=== PATIENT | female | born 1955 | race Caucasian/White ===

== ENCOUNTER 2018-02-25 20:07 | Observation (INO) ==
--- NOTE | 2018-02-25 20:56 | Emergency Department Note ---
Disposition Clinical Impression: Dizziness Disposition: Admitted As Inpatient Condition: Fair Referrals: Jenni Santiago DO [Primary Care Provider] - Forms: ED Satisfaction Letter Time of Disposition: 00:15 General Adult HPI - General Chief complaint: ED Dizziness Stated complaint: dizziness n/v Time Seen by Provider: 02/25/18 20:15 Source: patient, EMS Mode of arrival: EMS Limitations: no limitations Nursing Notes Reviewed: Yes Vital Signs Reviewed: Yes - History of Present Illness HPI Narrative: 62 year old white female presents for dizziness and nausea/vomiting. It started suddenly 2 hours ago while sitting outside. She feels like her eyes can't focus and when she tries to walk, she can't walk in a straight line. Dizziness is worse with movement of the head and better with staying completely still. Patient states this has never happened before. Patient states EMS gave her something for nausea and that her nausea is now gone. Only other associated weakness patient reports is feeling weak. Denies ringing in the ears, hearing changes, visual changes, congestion, recent illness, fever, chills, weight loss , trauma, fall, diarrhea, chest pain, shortness of breath, numbness, tingling, abdominal pain, urinary changes, bowel changes. Patient reports history of HTN, denies diabetes and cancer. Pain Scale: 0 - Related Data Home Medications Medication Instructions Recorded Confirmed Hydrochlorothiazide [Microzide] 12.5 mg PO DAILY 02/25/18 02/25/18 Previous Rx's Medication Instructions Recorded Lisinopril [Zestril] 10 mg PO DAILY #20 tablet 09/19/17 Allergies Allergy/AdvReac Type Severity Reaction Status Date / Time No Known Allergies Allergy Verified 01/15/17 09:54 All systems ED: reviewed and negative except as stated. Past Medical History - Past Medical History Medical history: Reports: hypertension Surgical history: Reports: colectomy Psychiatric history: Reports: no psych history STATISTICIAN THEORETICAL history: Reports: bilateral tubal ligation - Social History Smoking Status: Former smoker Smokeless Tobacco Status: No Alcohol use: Reports: none Drug use: Reports: none Physical Exam - General Limitations: no limitations General appearance: alert - Head Head exam: atraumatic, normocephalic, normal inspection - Eye Eye exam: Present: normal appearance, PERRL, EOMI. Absent: nystagmus - ENT ENT exam: normal exam, normal oropharynx, mucous membranes moist - Respiratory Respiratory exam: Present: normal lung sounds bilaterally - Cardiovascular Cardiovascular exam: Present: regular rate, normal rhythm, normal heart sounds - Abdominal Exam Abdominal exam: Present: soft, Non-Tender. Absent: tenderness, distention, guarding, rebound, rigidity - Extremities Exam Extremities exam: Present: normal inspection, full ROM. Absent: tenderness, pedal edema - Neurological Exam Neurological exam: Present: alert, oriented X3, CN II-XII intact, other ( Negative HINTS exam). Absent: motor sensory deficit - Psychiatric Psychiatric exam: Present: normal affect, normal mood - Skin Skin exam: Present: warm, dry, intact, normal color Course Course Narrative: 62 year old female presents for sudden onset dizziness with nausea and vomiting that is worse with movement of the head and better with staying still. Patient is alert and oriented, hemodynamically stable, and of non-toxic appearance. On exam, dizziness is worsened with head rotation. HINTS exam is negative and there are no focal deficits. Will give patient meclizine. Will also order head CT, EKG, CBC, and BMP. - Reevaluation(s) Reevaluation #1: Head CT shows no acute abnormalities. Labwork is unremarkable. Patient could not tolerate meclizine by mouth and started vomiting again. Another dose of IV zofran was given. Will try oral meclizine again. Time: 21:50 Reevaluation #2: Patient was able to keep down second try of meclizine. Checking on patient at 11 :13pm, she reports dizziness seems to be a little better. Patient was walked. She was able to walk slowly without assistance in a straight line and turn without falling or vomiting, but the patient still reports dizziness and feeling unsteady. UA reveals large leukocyte esterase, high WBCs, and many squamous epithelial cells. Will order rocephin for UTI. Will admit to hospitalist for continuing dizziness. Spoke with hospitalist Dr. Valdivia and he agreed to admit patient. Spoke with patient about negative imaging and lab results and about admission to hospital. Patient voiced understanding and is agreeable to admission. Time: 00:01 Vital Signs Temperature 97 F L 02/25/18 20:17 Pulse Rate 79 02/25/18 20:17 Respiratory Rate 18 02/25/18 20:17 Blood Pressure 139/84 02/25/18 20:17 O2 Sat by Pulse Oximetry 94 02/25/18 20:17 Temperature 97 F L 02/25/18 20:17 Pulse Rate 93 02/25/18 21:37 Respiratory Rate 16 02/25/18 21:37 Blood Pressure 136/68 02/25/18 21:37 O2 Sat by Pulse Oximetry 95 02/25/18 21:37 Oxygen Delivery Oxygen Delivery Room Air Medical Decision Making - Medical Records Medical records reviewed: Yes I reviewed the patient's medical records. - Lab Data Lab results reviewed: Yes I reviewed the patient's lab results. - Radiology Data Radiology results reviewed: Yes I reviewed the patient's radiology results. Head CT 02/25/2018. No acute abnormalities. - EKG Data EKG #1 EKG attestation: Yes I reviewed and interpreted this EKG. EKG results narrative: EKG 02/25/2018 21:07. Sinus rhythm. Heart rate 80. No ST segment depression or elevation. No comparison EKG.
[2018-02-25] MEDS ORDERED: Ondansetron 4 MG/2 ML VIAL IVP ONE (21:27)
[2018-02-25 21:44] LABS: Basophils % 0.3 %; Eosinophils % 0.2 %; Hematocrit 41.5 % (35.3-44.9); Hemoglobin 14.1 g/dL (11.5-15.4); Immature Granulocytes % 0.5 % (0-4); Lymphocytes # 1.4 K/mcL (0.6-4.6); Lymphocytes % 10.1 %; Mean Corpuscular Hemoglobin 30.5 pg (28.0-33.3); Mean Corpuscular Volume 89.8 fL (83.0-100.0); Mean Platelet Volume 8.8 fL (9.4-12.4); Monocytes % 7.4 %; Neutrophils # 11.2 K/mcL (1.6-8.9); Platelet Count 255 K/mcL (140-400); Red Blood Count 4.62 M/mcL (3.82-4.97); Red Cell Distribution Width 13.6 % (11.5-14.5); Segmented Neutrophils % 81.5 %
[2018-02-25 22:03] LABS: BUN/Creatinine Ratio 21 (6-26); Blood Urea Nitrogen 16 mg/dL (8-23); Calcium 9.2 mg/dL (8.6-10.3); Carbon Dioxide 27 mEq/L (23-29); Chloride 109 mEq/L (98-107); Glucose 136 mg/dL (70-105); Osmolality,Calculated 283 (280-300); Potassium 4.1 mEq/L (3.5-5.1); Sodium 135 mEq/L (136-145); eGFR For Non-African Americans > 60 (> 60)
[2018-02-25 23:03] LABS: Bilirubin,Urine Negative (Negative); Blood,Urine Negative (Negative); Clarity,Urine Clear (Clear); Color,Urine Yellow (Yellow); Glucose,Urine (UA) Normal (Normal); Ketones,Urine Negative (Negative); Leukocyte Esterase,Urine Large (Negative); Nitrite,Urine Negative (Negative); Protein,Urine Negative (Neg-Trace); Specific Gravity,Urine 1.024 (1.010-1.025); Urobilinogen,Urine Normal (Normal)
[2018-02-25 23:06] LABS: Bacteria,Urine None Seen per hpf (None-Few); Hyaline Casts,Urine None Seen per lpf (None-Few); Squamous Epithelial Cell,Urine Many per lpf (None-Few); WBC,Urine 15-30 per hpf (0-3)
[2018-02-25] MEDS ORDERED: cefTRIAXone 1,000 MG in Water for inj. (sterile) 20 ML 10 ML IVPB ONE (23:51)
--- NOTE | 2018-02-25 23:56 | Emergency Department Note ---
Disposition Clinical Impression: Dizziness Disposition: Admitted As Inpatient Condition: Fair Referrals: Jenni Santiago DO [Primary Care Provider] - Forms: ED Satisfaction Letter Time of Disposition: 00:36 General Adult HPI - General Chief complaint: ED Dizziness Stated complaint: dizziness n/v Time Seen by Provider: 02/25/18 20:15 Source: patient, EMS Mode of arrival: EMS Limitations: no limitations - History of Present Illness Pain Scale: 0 - Related Data Home Medications Medication Instructions Recorded Confirmed Hydrochlorothiazide [Microzide] 12.5 mg PO DAILY 02/25/18 02/25/18 Previous Rx's Medication Instructions Recorded Lisinopril [Zestril] 10 mg PO DAILY #20 tablet 09/19/17 Allergies Allergy/AdvReac Type Severity Reaction Status Date / Time No Known Allergies Allergy Verified 01/15/17 09:54 Past Medical History - Past Medical History Medical history: Reports: hypertension Surgical history: Reports: colectomy Psychiatric history: Reports: 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 - Social History Smoking Status: Former smoker Smokeless Tobacco Status: No Alcohol use: Reports: none Drug use: Reports: none Physical Exam - General Limitations: no limitations General appearance: alert Course Vital Signs Temperature 97 F L 02/25/18 20:17 Pulse Rate 79 02/25/18 20:17 Respiratory Rate 18 02/25/18 20:17 Blood Pressure 139/84 02/25/18 20:17 O2 Sat by Pulse Oximetry 94 02/25/18 20:17 Temperature 97 F L 02/25/18 20:17 Pulse Rate 65 02/25/18 23:38 Respiratory Rate 20 02/25/18 23:38 Blood Pressure 123/72 02/25/18 23:38 O2 Sat by Pulse Oximetry 95 02/25/18 23:38 Oxygen Delivery Oxygen Delivery Room Air Medical Decision Making - Lab Data Result diagrams: 02/25/18 21:36 02/25/18 21:36 Lab Results 02/25/18 02/25/18 02/25/18 Range/Units 21:36 21:36 22:52 WBC 13.7 H (4.3-11.1) K/mcL RBC 4.62 (3.82-4.97) M/mcL Hgb 14.1 (11.5-15.4) g/dL Hct 41.5 (35.3-44.9) % MCV 89.8 (83.0-100.0) fL MCH 30.5 (28.0-33.3) pg MCHC 34.0 (31.6-35.5) g/dL RDW 13.6 (11.5-14.5) % Plt Count 255 (140-400) K/mcL MPV 8.8 L (9.4-12.4) fL Immature Gran % 0.5 (0-4) % Seg Neutrophils % 81.5 % Lymphocytes % 10.1 % Monocytes % 7.4 % Eosinophils % 0.2 % Basophils % 0.3 % Neutrophils # 11.2 H (1.6-8.9) K/mcL Lymphocytes # 1.4 (0.6-4.6) K/mcL Monocytes # 1.0 (0.0-1.3) K/mcL Eosinophils # 0.0 (0.0-0.6) K/mcL Basophils # 0.0 (0.0-0.2) K/mcL Sodium 135 L (136-145) mEq/L Potassium 4.1 (3.5-5.1) mEq/L Chloride 109 H (98-107) mEq/L Carbon Dioxide 27 (23-29) mEq/L BUN 16 (8-23) mg/dL Creatinine 0.75 (0.60-1.20) mg/dL Est GFR ( Amer) > 60 (> 60) Est GFR (Non-Af Amer) > 60 (> 60) BUN/Creatinine Ratio 21 (6-26) Glucose 136 H (70-105) mg/dL Calculated Osmolality 283 (280-300) Calcium 9.2 (8.6-10.3) mg/dL Urine Color Yellow (Yellow) Urine Clarity Clear (Clear) Urine pH 6.0 (5.0-8.0) pH Units Ur Specific Booker 1.024 (1.010-1.025) Urine Protein Negative (Neg-Trace) mg/dL Urine Glucose (UA) Normal (Normal) mg/dL Urine Ketones Negative (Negative) mg/dL Urine Blood Negative (Negative) Urine Nitrite Negative (Negative) Urine Bilirubin Negative (Negative) Urine Urobilinogen Normal (Normal) mg/dL Ur Leukocyte Esterase Large H (Negative) Urine Microscopic WBC 15-30 H (0-3) per hpf Ur Squamous Epith Cells Many H (None-Few) per lpf Urine Bacteria None Seen (None-Few) per hpf Hyaline Casts None Seen (None-Few) per lpf Ur Culture Indicated? NO. A (NO) Attestation Statement - Attestation Attestation: I examined this patient and my medical decision-making was reviewed with the Resident Physician. I agree with the documented findings, disposition and treatment plan as described except to the extent set forth below. Patient to the ED with dizziness. onset a couple hours prior to arrival. She has had an episode of vomiting. No history of similar episodes. It is worse when she moves her head. On examination she sitting up in bed in no distress. Pupils equally reactive. Moving all extremities. I cannot reproduce any nystagmus. Hint exam is also negative for nystagmus. Plan. The patient received meclizine. She had some more vomiting in the department. Repeat dose of Zofran. She is better but she still having quite a bit of dizziness and feels off balance when she walks. We will admit for further workup for posterior circulation infarct as patient is still symptomatic and we are concerned for her safety. Head CT 02/25/18 20:56 IMPRESSION: 1. No acute intracranial abnormality. D/ / Devin Denis MD / Devin Denis MD Interpreting Provider: Devin Denis MD
[2018-02-26] MEDS ORDERED: Naloxone 0.4 MG/ML INJ IVP PRN (01:47)
[2018-02-26] MEDS ORDERED: Acetaminophen 325 MG TABLET PO PRN (01:47)
[2018-02-26] MEDS ORDERED: 0.9 % Sodium Chloride 1,000 ML IVC SCH ×2 (02:00→20:00)
--- NOTE | 2018-02-26 02:45 | Internal Med History&Physical ---
<Agustin Ceballos - Last Filed: 02/26/18 02:51> Date of Encounter: 02/26/18 Time of Encounter: 00:30 Internal Medicine - H&P: HPI Chief complaint: weakness Admitted From: Emergency Dept Plans for Post Hospital Care: Home History of present illness: Ms. Kemp is a 62 year old female with past medical history of hypertension presents to emergency room with complaint of weakness and unsteadiness. Patient states that around 5 PM this evening she got up to walk from a swing and felt unsteady. There is originally some confusion about vertigo symptoms however patient states that she never felt dizzy or lightheaded. She states that when she gets up to walk she leans and feels as if she was about to fall. She states she has never experienced this in the past and has been constant since onset. She denies any symptoms of fevers, chills, chest pain, shortness of breath, constipation, diarrhea, melena, hematochezia. She does admit to some nausea with vomiting of sputum which has resolved since Zofran administration by EMS. She denies any numbness but admits to chronic tingling secondary to neuropathy. Denies any focal weakness, slurred speech. In the emergency room, vitals on presentation were unremarkable. Laboratory results were also unremarkable except for mild elevation of WBC of 13.7. CT of the head was obtained emergency department and was negative for acute pathology. They also obtain CT scans of cervical, thoracic, lumbar spine which were also unremarkable except for chronic degenerative changes. Chest x-ray and pelvic x-ray were also within normal limits. Past medical history as above. Patient also admits to colon mass status post resection but denies any cancer history Surgical history includes partial colectomy as above Patient denies smoking, drinking or drug use Past Med Surg Social Fam HX - Past Medical History Medical history: hypertension Additional medical history: rectal mass Psychiatric history: no psych history - Past Surgical History Surgical History: colectomy Additional surgical history: eye implants - Social History Smoking Status: Former smoker Packs per day: 1.5 Smokeless Tobacco Status: No Alcohol use: none Drug use: none - Family History Mother Hx Family Cardiac Disorders: Yes (HTN, CHF) Internal Medicine - H&P: Meds Lisinopril [Zestril] 10 mg PO DAILY #20 tablet 09/19/17 [Rx] Hydrochlorothiazide [Microzide] 12.5 mg PO DAILY 02/25/18 [History] 3 Allergy/AdvReac Type Severity Reaction Status Date / Time No Known Allergies Allergy Verified 01/15/17 09:54 All Systems PM: A 10-system review of systems was performed and is negative for pertinent findings except as documented above in the HPI. - Constitutional Constitutional: fatigue, weakness, no chills, no fever(s) - EENT Eyes: no blurry vision, no diplopia - Cardiovascular Cardiovascular ROS IM: no chest pain, no diaphoresis, no dyspnea, no dyspnea on exertion, no lightheadedness, no orthopnea, no palpitations, no syncope - Respiratory Respiratory: no cough, no dyspnea, no dyspnea on exertion - Gastrointestinal Gastrointestinal: nausea, vomiting, no abdominal pain, no constipation, no diarrhea, no hematochezia - Genitourinary Genitourinary: no dysuria - Musculoskeletal Musculoskeletal ROS IM: tingling, no numbness - Neurological Neurological ROS: abnormal gait, disequilibrium, lack of coordination, tingling , no abnormal movements, no abnormal speech, no confusion, no dizziness, no numbness, no paresthesias, no vertigo - Constitutional Vitals: Temp Pulse Resp BP Pulse Ox 97.5 F L 70 16 132/76 94 02/26/18 01:31 02/26/18 01:31 02/26/18 01:31 02/26/18 01:31 02/26/18 01:31 Exam: Gen.: Vitals noted. No acute distress. AAOx3 HEENT: PERRL/EOMI, oropharynx clear, Normocephalic, atraumatic, MMM. Cardiac: RRR, no murmur, +S1/S2 Pulmonary: CTA bilaterally, no wheezes, rales or rhonchi, equal chest expansion Abdomen: soft, nontender, BS noted, no guarding, no rebound. MSK: Muscle strength 5/5 in all extremities, possible slight weakness in LLE. Extremities: no BLE edema, nontender calf, no cyanosis or clubbing Neuro: A&Ox3, moves all extremities, no focal deficits. CNII- XII intact. Psych: Appropriate mood and behavior Internal Med - H&P Results - Labs CBC & Chem 7: 02/25/18 21:36 02/25/18 21:36 - Assessment and plan (1) Disequilibrium Current Visit: Yes Status: Acute Assessment and plan: - Acute weakness and disequilibrium per history of present illness - CT had not emergency department was unremarkable for acute pathology - Possible etiologies include viral illness, dehydration, brain ischemia - Received 1 L bolus emergency room as well as meclizine and Zofran - Electrolytes within normal limits Plan - We will obtain echocardiogram - Obtain brain MRI in AM - Symptomatic treatment with Zofran and meclizine - Continue IV fluids at 100 per hour - Obtain orthostatic blood pressures (2) Dizziness Current Visit: Yes Status: Suspected Assessment and plan: - ED documentation reports patient was recently complaining of some dizziness patient denied during my interview. Given meclizine in ED. We will continue when necessary (3) Weakness Current Visit: Yes Status: Acute Assessment and plan: As above PT/OT consult (4) Nausea and vomiting Current Visit: Yes Status: Acute Assessment and plan: - Likely secondary to disequilibrium - Patient also reports decreased oral intake which may be contributing to her weakness and unsteadiness - Electrolytes within normal limits - Symptomatic treatment and further management as above Qualifiers: Vomiting type: unspecified Vomiting Intractability: non-intractable Qualified Code(s): R11.2 - Nausea with vomiting, unspecified (5) DVT prophylaxis Current Visit: Yes Status: Acute Assessment and plan: Heparin 5000 units twice a day (6) Hypertension Current Visit: Yes Status: Acute Assessment and plan: Well-controlled at 123/72, will continue home medications Qualifiers: Hypertension type: essential hypertension Qualified Code(s): I10 - Essential (primary) hypertension - Time Spent With Patient Total time spent is greater than 50% in coordination of care (as documented) at patient's floor/unit and/or counseling patient: <Tad Wilson - Last Filed: 02/26/18 03:42> Date of Encounter: 02/26/18 Internal Medicine - H&P: HPI History of present illness: Ms. Kemp is a 62 year old female All Systems PM: A 10-system review of systems was performed and is negative for pertinent findings except as documented above in the HPI. - Constitutional Vitals: Temp Pulse Resp BP Pulse Ox 97.5 F L 70 16 132/76 94 02/26/18 01:31 02/26/18 01:31 02/26/18 01:31 02/26/18 01:31 02/26/18 01:31 Internal Med - H&P Results - Labs CBC & Chem 7: 02/25/18 21:36 02/25/18 21:36 - Attending Attestation Seen and assessed. Agree with plan per resident. Continue management for dizziness/disequilibium possibly 2/2 to dehydration vs r/o intracaranial pathology. Continue IV fluids. F/U MRI head - Assessment and plan (1) DVT prophylaxis Current Visit: Yes Status: Acute (2) Nausea and vomiting Current Visit: Yes Status: Acute Qualifiers: Vomiting type: unspecified Vomiting Intractability: non-intractable Qualified Code(s): R11.2 - Nausea with vomiting, unspecified (3) Dizziness Current Visit: Yes Status: Suspected (4) Disequilibrium Current Visit: Yes Status: Acute (5) Weakness Current Visit: Yes Status: Acute (6) Hypertension Current Visit: Yes Status: Acute Qualifiers: Hypertension type: essential hypertension Qualified Code(s): I10 - Essential (primary) hypertension - Time Spent With Patient Total time spent is greater than 50% in coordination of care (as documented) at patient's floor/unit and/or counseling patient:
[2018-02-26] MEDS ORDERED: Ondansetron 4 MG/2 ML VIAL IVP PRN (02:53)
--- NOTE | 2018-02-26 10:09 | Event Note ---
Date of Encounter: 02/26/18 Time of Encounter: 10:09 Patient was seen and examined at bedside. She was previously seen earlier this morning by hospitalist. Currently she denies any chest pain or palpitations lightheadedness or vision changes. Neurological exam was completed with no focal deficits noted. I did attempt to ambulate the patient and she had difficulty walking complaining of dizziness and needed assistance back to the bed. MRI has been ordered obtain orthostatic continue with IV fluids and Zofran as needed consulting PT OT for evaluation
[2018-02-26 10:38] LABS: Basophils % 0.2 %; Eosinophils # 0.1 K/mcL (0.0-0.6); Eosinophils % 0.6 %; Hematocrit 41.2 % (35.3-44.9); Hemoglobin 13.8 g/dL (11.5-15.4); Immature Granulocytes % 0.2 % (0-4); Lymphocytes # 1.9 K/mcL (0.6-4.6); Lymphocytes % 21.1 %; Mean Corpuscular HGB Conc 33.5 g/dL (31.6-35.5); Mean Corpuscular Hemoglobin 30.2 pg (28.0-33.3); Mean Corpuscular Volume 90.2 fL (83.0-100.0); Monocytes # 0.8 K/mcL (0.0-1.3); Monocytes % 8.8 %; Neutrophils # 6.2 K/mcL (1.6-8.9); Platelet Count 253 K/mcL (140-400); Red Blood Count 4.57 M/mcL (3.82-4.97); Red Cell Distribution Width 13.7 % (11.5-14.5); Segmented Neutrophils % 69.1 %
[2018-02-26] MEDS: *HR* Heparin 5,000 UNIT/ML VIAL SQ SCH ×2 (10:46→17:38)
[2018-02-26 10:55] LABS: BUN/Creatinine Ratio 16 (6-26); Blood Urea Nitrogen 14 mg/dL (8-23); Calcium 8.9 mg/dL (8.6-10.3); Carbon Dioxide 29 mEq/L (23-29); Chloride 105 mEq/L (98-107); Glucose 140 mg/dL (70-105); Osmolality,Calculated 293 (280-300); Potassium 3.5 mEq/L (3.5-5.1); Sodium 140 mEq/L (136-145); eGFR For Non-African Americans > 60 (> 60)
[2018-02-26] MEDS: hydroCHLOROthiazide 25 MG TABLET PO SCH (10:58)
--- NOTE | 2018-02-27 02:14 | Electrocardiograph Report ---
[place] [id number] Test Date: 2018-02-25 Pat Name: Delmis Kemp Department: 103 Room: 3B23 Gender: F Asset Management Coordinator: EKP : [id number] Requested By: Jamila See Order Number: [id number] Reading MD: Whitney Weinstein Measurements Intervals [place] Rate: 80 P: 67 VA: 151 QRS: 24 QRSD: 83 T: 70 QT: 389 QTc: 425 Interpretive Statements SINUS RHYTHM WITH SINUS ARRHYTHMIA NONSPECIFIC ST & T-WAVE ABNORMALITY Electronically Signed On 02-26-2018 16:07:59 EDT by Whitney Weinstein
[2018-02-27] MEDS: *HR* Heparin 5,000 UNIT/ML VIAL SQ SCH ×2 (05:52→15:58)
[2018-02-27] MEDS: hydroCHLOROthiazide 25 MG TABLET PO SCH (08:28)
--- NOTE | 2018-02-27 09:22 | Internal Med Progress Note ---
Hospitalist Progress Note - Encounter Date of Encounter: 02/27/18 Time of Encounter: 09:22 - Subjective Interval History: Patient was seen and examined at bedside originally she presented with weakness and unsteadiness. She does feel lightheaded with positional changes. She denies any symptoms of fever or chills diarrhea. She did have some nausea with vomiting of sputum prior to arrival which was relieved with Zofran. She does have some difficulty ambulating she feels as if she is falling forward. 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 Echo with EF of 60% mild left ventricular diastolic dysfunction normal right ventricular structure no significant valvular dysfunction or pulmonary hypertension. Orthostatics were obtained she was somewhat tachycardic and given IV fluids overnight. This a.m. patient continues to experience symptoms no focal deficits noted no nystagmus. We will consult neurology - Exam Vitals: Temp Pulse Resp BP Pulse Ox 98 F 70 16 116/73 93 02/27/18 06:48 02/27/18 06:48 02/27/18 06:48 02/27/18 06:48 02/27/18 06:48 Exam: Skin: Free of rash and discoloration. Eyes: Sclera is white. There is no discharge from eyes. ENMT: Oral/pharyngeal mucosa is normal in appearance. There is no discharge from nose or ears. Respiratory: Normal breath sounds with no crackles and wheezes bilaterally. CV: Heart is regular with no gallop or murmur. GI: Abdomen is flat and soft with no palpable mass or visceromegaly. : There is no tenderness in patient's flanks bilaterally. Neuro exam: He has good strength in upper and lower extremities. He has normal eye movements.-Difficulty ambulating-unsteady gait Psychiatric: He has normal affect. His thought process is appropriate to the situation. - Assessment and Plan (1) Nausea and vomiting Current Visit: Yes Status: Acute Assessment and Plan: - Likely secondary to disequilibrium-no nausea and vomiting overnight - A she has received IV fluids without improvement of symptoms - Electrolytes within normal limits - Symptomatic treatment and further management as above (2) Dizziness Current Visit: Yes Status: Suspected Assessment and Plan: - Patient does have dizziness on positional changes-she was given IV fluids overnight without any improvement continue with meclizine repeat orthostatics We will consult neurology (3) Disequilibrium Current Visit: Yes Status: Acute Assessment and Plan: 02/26 Acute weakness and disequilibrium per history of present illness - CT had not emergency department was unremarkable for acute pathology - Possible etiologies include viral illness, dehydration, brain ischemia - Received 1 L bolus emergency room as well as meclizine and Zofran - Electrolytes within normal limits Plan - echo Impressions: LVEF 60%. Mild left ventricular diastolic dysfunction. Normal right ventricular structure and function. No significant valvular dysfunction. No pulmonary hypertension. - brain MRI- IMPRESSION: 1. No acute intracranial abnormality. Specifically, no acute infarction. 2. Focus of chronic microhemorrhage in the left noriega radiata. This is an incidental finding. - Symptomatic treatment with Zofran and meclizine - IV fluids -neurology consult - Repeat orthostatic blood pressures (4) Weakness Current Visit: Yes Status: Acute Assessment and Plan: As above PT/OT consult (5) Hypertension Current Visit: Yes Status: Acute Assessment and Plan: Hold meds for now -dt low BP and dizziness - IVF given (6) DVT prophylaxis Current Visit: Yes Status: Acute Assessment and Plan: Heparin 5000 units twice a day - Time Spent with Patient Total time spent is greater than 50% in coordination of care (as documented) at patient's floor/unit and/or counseling patient: Internal Medicine: Result - Labs CBC & Chem 7: 02/26/18 10:15 02/26/18 10:15 Labs: Short CBC 02/26/18 Range/Units 10:15 WBC 9.0 (4.3-11.1) K/mcL Hgb 13.8 (11.5-15.4) g/dL Hct 41.2 (35.3-44.9) % Plt Count 253 (140-400) K/mcL Neutrophils # 6.2 (1.6-8.9) K/mcL BMP 02/26/18 10:15 Sodium 140 Potassium 3.5 Chloride 105 Carbon Dioxide 29 BUN 14 Creatinine 0.87 Glucose 140 H Calcium 8.9 - Impressions Impressions Brain MRI 02/26/18 01:47 IMPRESSION: 1. No acute intracranial abnormality. Specifically, no acute infarction. 2. Focus of chronic microhemorrhage in the left noriega radiata. This is an incidental finding. D/ / Devi Reid MD / Devi Reid MD Interpreting Provider: Devi Reid MD Echocardiogram 02/26/18 01:47 Impressions: LVEF 60%. Mild left ventricular diastolic dysfunction. Normal right ventricular structure and function. No significant valvular dysfunction. No pulmonary hypertension. Left Ventricular Wall Motion: Rest Echo Findings All wall segments showed normal motion. Findings: Study Quality * Technically adequate exam. ECG Findings * Normal sinus rhythm. Left Ventricle * LVEF 60%. * Normal LV chamber size, wall thickness and function. * Mild left ventricular diastolic dysfunction. Right Ventricle * Normal right ventricular structure and function. Left Atrium * Normal left atrial size. Right Atrium * Normal right atrial size. Mitral Valve * Normal mitral valve structure. * No mitral stenosis. * Trace mitral regurgitation. Aortic Valve * No aortic regurgitation. * Trileaflet aortic valve. * No aortic stenosis. Tricuspid Valve * Tricuspid valve not well visualized. * No tricuspid regurgitation. * Estimated RA pressure is 3 mmHg. Pulmonic Valve * Pulmonic valve is not well visualized. * No pulmonic stenosis. * Trace pulmonic regurgitation. Pulmonary Artery * Pulmonary artery not well visualized. Aorta * Normally sized aortic root. Pericardium * There is no pericardial effusion present. Interatrial Septum * No evidence of PFO by color Doppler. IVC * Normal IVC dimensions and inspiratory collapse. Consult Discharge Plan - Plan Referrals: Jenni Santiago DO [Primary Care Provider] - 03/10/18 1:00 pm (You will see Dr. Olmstead ) (1) Nausea and vomiting Qualifiers: Vomiting type: unspecified Vomiting Intractability: non-intractable Qualified Code(s): R11.2 - Nausea with vomiting, unspecified (5) Hypertension Qualifiers: Hypertension type: essential hypertension Qualified Code(s): I10 - Essential (primary) hypertension
--- NOTE | 2018-02-27 15:14 | Neurology - Consult Note ---
<Pascual Garcia T - Last Filed: 02/27/18 16:19> Date of Encounter: 02/27/18 Time of Encounter: 12:30 Assessment and Plan (1) Dizziness Current Visit: Yes Status: Suspected Likely BPPV Neurological exam was non focal and does not suggest a central cause of dizziness. Ok to dc and follow up in the office in 3-4 weeks and if symptoms have not resolved can send for vestibular rehab. Code(s): R42 - Dizziness and giddiness SNOMED Code(s): 380861953, [id number] History of Present Illness Chief complaint: Dizziness HPI: Ms. Kemp is a 62 year old female with a PMH significant for HTN and neurology consulted for dizziness. She states 2 days ago she was on a swing at home and suddenly felt dizzy she described as the room spinning. When she tried to walk inside she was off balance towards the L side and had trouble walking up the stairs. When she got inside she checked her BP and her heart rate was in the 130 's. She admitted to noticing her heart has been beating much faster over the last couple months. She denied any presyncopal symptoms but did say she " blacked out" about 1 month ago while mowing the yard but no repeat symptoms since. She said the dizziness has been brought on when going from sitting to standing and will last a few seconds. She additionally has indicated that when she turns her head to either the R or the L she will reproduce the dizziness. She had repeat N/V since dizziness started. She said the only fluids she drinks a day is 1 cup of coffee in the morning and 1 16oz bottle of water throughout the day and nothing else. She has received IV fluids here and orthostatic check today did not show a BP decrese but did have an increased total heart rate of 25 from 65-90 bpm. She has denied any falls, paresthesias, MERCHANT, ear fullness or change in hearing. Past Med Surg Social Fam HX - Past Medical History Medical history: hypertension Additional medical history: rectal mass Psychiatric history: no psych history - Past Surgical History Surgical History: colectomy Additional surgical history: eye implants - Social History Smoking Status: Former smoker Packs per day: 1.5 Smokeless Tobacco Status: No Alcohol use: none Drug use: none - Family History Mother Hx Family Cardiac Disorders: Yes (HTN, CHF) Medications and Allergies Lisinopril [Zestril] 10 mg PO DAILY #20 tablet 09/19/17 [Rx] Hydrochlorothiazide [Microzide] 12.5 mg PO DAILY 02/25/18 [History] 3 Allergy/AdvReac Type Severity Reaction Status Date / Time No Known Allergies Allergy Verified 02/26/18 20:25 All Systems: The remainder of the systems were reviewed and are negative Physical Examination - Vital Signs Vital Signs: Initial Vital Signs Temp Pulse Resp BP Pulse Ox 97 F L 79 18 139/84 94 02/25/18 20:17 02/25/18 20:17 02/25/18 20:17 02/25/18 20:17 02/25/18 20:17 - Constitutional General appearance: comfortable - Neurologic Sensorimotor examination: intact Detailed motor examination: full strength in all major muscle groups Detailed sensory examination: intact Mental Status Examination: awake, alert, oriented to person, oriented to place, oriented to time, follows commands appropriately, answers questions appropriately, no aphasia Cranial nerve examination: PERRL, EOMI, visual [place] intact, sensory to face intact, no facial asymmetry is present, no dysarthria, hearing is intact symmetrically, soft palate elevates bilaterally upon phonation, flexes SCM and trapezius muscles symmetrically with full power, tongue protrudes midline, no atrophy or facial fasiculations present Cerebellar examination: no dysmetria Results - Laboratory Findings CBC and BMP: 02/26/18 10:15 02/26/18 10:15 Abnormal lab findings: Abnormal lab results MPV 9.0 fL (9.4-12.4) L 02/26/18 10:15 Glucose 140 mg/dL (70-105) H 02/26/18 10:15 LDL Cholesterol, Calc 116 mg/dL (0-99) H 02/26/18 05:29 HDL Cholesterol 65 mg/dL (40-59) H 02/26/18 05:29 Ur Leukocyte Esterase Large (Negative) H 02/25/18 22:52 Urine Microscopic WBC 15-30 per hpf (0-3) H 02/25/18 22:52 Ur Squamous Epith Cells Many per lpf (None-Few) H 02/25/18 22:52 Ur Culture Indicated? NO. (NO) A 02/25/18 22:52 Consult Discharge Plan - Plan Referrals: Jenni Santiago DO [Primary Care Provider] - 03/10/18 1:00 pm (You will see Dr. Olmstead ) <Antoine Vasquez Tamica - Last Filed: 02/27/18 16:40> Date of Encounter: 02/27/18 Time of Encounter: 16:37 Assessment and Plan (1) Dizziness Current Visit: Yes Status: Suspected I agree with Dr. Garcia's assessment and conclusions as stated above. No evidence of a focal neurologic process. No evidence of a central nervous system vascular, inflammatory or metabolic process. You may discharge her at your discretion. History of Present Illness HPI: The chart was reviewed, patient was seen and examined independently with Dr. Garcia. Case was discussed with Dr. Garcia. I agree with his assessment the history of present illness as stated above. All Systems: The remainder of the systems were reviewed and are negative Review of Systems: The balance of the systems review is negative. Physical Examination - Vital Signs Vital Signs: Initial Vital Signs Temp Pulse Resp BP Pulse Ox 97 F L 79 18 139/84 94 02/25/18 20:17 02/25/18 20:17 02/25/18 20:17 02/25/18 20:17 02/25/18 20:17 - Neurologic Detailed motor examination: full strength in all major muscle groups Motor examination - right side: 5/5: deltoids, biceps, triceps, wrist flexion, wrist extension, senior net developer, hip flexors, tibialis Anterior, quadriceps, toe extension (EHL), plantarflexion Motor examination - left side: 5/5: deltoids, biceps, triceps, wrist flexion, wrist extension, hip flexors, senior net developer, quadriceps, tibialis Anterior, toe extension (EHL), plantarflexion Mental Status Examination: awake, alert, oriented to person, oriented to place, oriented to time, follows commands appropriately, answers questions appropriately, no agnosia, no aphasia, no aproxia Cranial nerve examination: PERRL, EOMI, visual [place] intact, corneal reflexes brisk symmetrically, sensory to face intact, mastication intact, no facial asymmetry is present, no dysarthria, hearing is intact symmetrically, soft palate elevates bilaterally upon phonation, gag reflex intact, flexes SCM and trapezius muscles symmetrically with full power, tongue protrudes midline, no atrophy or facial fasiculations present Cerebellar examination: no dysmetria, performs finger to nose and heel to caceres symmetrically without ataxia, no gait ataxia, no truncal ataxia, no difficulty with rapid alternating movements Results - Laboratory Findings CBC and BMP: 02/26/18 10:15 02/26/18 10:15 Abnormal lab findings: Abnormal lab results MPV 9.0 fL (9.4-12.4) L 02/26/18 10:15 Glucose 140 mg/dL (70-105) H 02/26/18 10:15 LDL Cholesterol, Calc 116 mg/dL (0-99) H 02/26/18 05:29 HDL Cholesterol 65 mg/dL (40-59) H 02/26/18 05:29 Ur Leukocyte Esterase Large (Negative) H 02/25/18 22:52 Urine Microscopic WBC 15-30 per hpf (0-3) H 02/25/18 22:52 Ur Squamous Epith Cells Many per lpf (None-Few) H 02/25/18 22:52 Ur Culture Indicated? NO. (NO) A 02/25/18 22:52
[2018-02-28] MEDS: *HR* Heparin 5,000 UNIT/ML VIAL SQ SCH (05:55)
[2018-02-28 11:18] VITALS: BP 144/81
--- NOTE | 2018-02-28 13:15 | Discharge Summary ---
- NOTES TO OUTPATIENT PROVIDER Notes to Outpatient Provider: Dizziness, likely BPPV, improving. Pt on Meclizine , consider vestibular rehab if symptoms persist. Date of Encounter: 02/28/18 Time of Encounter: 12:05 - Discharge Diagnosis (1) DVT prophylaxis Priority: Secondary Status: Acute Assessment and Plan: Heparin 5000 units BID (2) Nausea and vomiting Priority: Secondary Status: Acute Assessment and Plan: -Pt denies today, states that she is feeling better. Qualifiers: Vomiting type: unspecified Vomiting Intractability: non-intractable Qualified Code(s): R11.2 - Nausea with vomiting, unspecified (3) Dizziness Priority: Secondary Status: Suspected Assessment and Plan: Pt reports significant improvement with Meclizine, though she is not completely back to baseline. Continue Meclizine and slow position changes Pt will follow up with PCP on Friday as scheduled, if symptoms persist, pt could benefit from vestibular rehab. Neurology evaluated pt, will see pt in the office in 3-4 weeks. (4) Disequilibrium Priority: Secondary Status: Acute Assessment and Plan: Plan as above. (5) Weakness Priority: Secondary Status: Acute Assessment and Plan: As above (6) Hypertension Priority: Secondary Status: Acute Assessment and Plan: Well controlled. Continue current medications. Qualifiers: Hypertension type: essential hypertension Qualified Code(s): I10 - Essential (primary) hypertension Hospital course: Ms. Kemp is a 62 year old female - Time Spent with Patient Total time spent providing and/or coordinating discharge services: - Discharge Medications Prescriptions: Ondansetron ODT [Zofran ODT] 4 mg SL Q6HR PRN #12 tab.rapdis PRN Reason: Nausea Meclizine [Antivert] 12.5 mg PO TID PRN #30 tablet PRN Reason: Dizziness Home Medications: Lisinopril [Zestril] 10 mg PO DAILY #20 tablet 09/19/17 [Rx] Hydrochlorothiazide [Microzide] 12.5 mg PO DAILY 02/25/18 [History] Meclizine [Antivert] 12.5 mg PO TID PRN #30 tablet 02/28/18 [Rx] Ondansetron ODT [Zofran ODT] 4 mg SL Q6HR PRN #12 tab.rapdis 02/28/18 [Rx] Allergies/Adverse Reactions: 3 Allergy/AdvReac Type Severity Reaction Status Date / Time No Known Allergies Allergy Verified 02/26/18 20:25 Date of admission: 02/26/18 00:56 Primary care physician: Jenni Santiago DO Consults: 02/27/18 14:20 Consult to Neurology [CONS] Routine Consulting Provider: Neurology [facility] Reason for Consult: Disequilibrium Time Notified: 12:00 Call Completed: Yes Discharging clinician: Angeli Dimas Anticipated date of discharge: 02/28/18 - Constitutional Vitals: Temp Pulse Resp BP Pulse Ox 97.9 F 82 15 144/81 96 02/28/18 11:16 02/28/18 11:16 02/28/18 11:16 02/28/18 11:16 02/28/18 11:16 General appearance: Present: cooperative, A&O X 3, pleasant, no acute distress, answers questions appropriately - Head Head exam: Present: atraumatic, normal inspection, normocephalic - Eye Eye exam: Present: normal appearance, conjuntiva pink, sclera anicteric - Neck Neck exam general surgery: Present: supple, trachea midline. Absent: lymphadenopathy, tenderness - Respiratory Respiratory exam: Present: CTAB. Absent: accessory muscle use, chest wall tenderness, rales, respiratory distress, rhonchi, wheezes - Cardiovascular Cardiovascular exam: Present: RRR, +S1, +S2. Absent: diastolic murmur, gallop, rubs, systolic murmur - GI/Abdominal GI/Abdominal exam: Present: normal bowel sounds, soft. Absent: distended, hepatomegaly, tenderness - Extremities Exam Extremities exam: Present: normal capillary refill, normal inspection, warm, radial pulses palpable and symmetrical. Absent: calf tenderness, cyanotic, pedal edema, tenderness - Neurological Exam Neurological exam: Present: alert, oriented X3, no focal deficits, strengths equal and symetr throughout. Absent: altered, motor sensory deficit, facial droop, speech deficit - Skin Skin exam: Present: dry, intact, normal color, warm. Absent: rash - Patient Status Disposition: Home, Self-Care Condition: Good Functional capacity at discharge: independent ambulation Overall status at discharge: patient is progressing back to baseline - Discharge Instructions Follow Up With: Jenni Santiago DO [Primary Care Provider] - 03/10/18 1:00 pm (You will see Dr. Olmstead ) Additional Instructions: Follow up with your PCP as scheduled. Get up from sitting or lying slowly Take your medications as directed REturn to your normal diet and activities as tolerated. Return to the ER as needed for any other problems or concerns, or if your symptoms return or worsen. - Diet and Activity Activity: increase activity as tolerated Diet: advance to your usual diet
== END 2018-02-28 13:54 | disposition home or self-care (01) ==
LOC: 3BNU 20:07 → EMEROO 20:07 → 3BNU 02-26 01:16
PROVIDERS: ADMIT Student in an Organized Health Care Education/Training Program; ATTEND Student in an Organized Health Care Education/Training Program

== ENCOUNTER 2022-04-11 16:41 | Observation (INO) ==
[2022-04-11] MEDS ORDERED: *HR* FentaNYL (PF) 100 MCG/2 ML VIAL IVP ONE (17:00)
[2022-04-11 17:30] LABS: Basophils # 0.1 K/mcL (0.0-0.2); Basophils % 0.5 %; Eosinophils # 0.2 K/mcL (0.0-0.6); Eosinophils % 1.7 %; Hematocrit 43.9 % (35.3-44.9); Hemoglobin 14.2 g/dL (11.5-15.4); Immature Granulocytes % 0.4 % (0-4); Lymphocytes # 1.7 K/mcL (0.6-4.6); Lymphocytes % 18.5 %; Mean Corpuscular HGB Conc 32.3 g/dL (31.6-35.5); Mean Corpuscular Hemoglobin 29.5 pg (28.0-33.3); Mean Corpuscular Volume 91.3 fL (83.0-100.0); Mean Platelet Volume 8.7 fL (9.4-12.4); Monocytes % 10.5 %; Neutrophils # 6.4 K/mcL (1.6-8.9); Platelet Count 247 K/mcL (140-400); Red Blood Count 4.81 M/mcL (3.82-4.97); Red Cell Distribution Width 14.4 % (11.5-14.5); Segmented Neutrophils % 68.4 %; White Blood Count 9.4 K/mcL (4.3-11.1)
[2022-04-11 17:49] LABS: Calcium 9.2 mg/dL (8.6-10.3); Potassium 4.2 mEq/L (3.5-5.1)
[2022-04-11] MEDS ORDERED: Naloxone 0.4 MG/ML INJ IVP PRN (18:11)
[2022-04-11] MEDS ORDERED: Morphine Sulfate 2 MG/ML SYRINGE IVP ONE (18:55)
[2022-04-11] MEDS ORDERED: Ondansetron 4 MG/2 ML VIAL IVP ONE (18:56)
[2022-04-11] MEDS: *HR* OxyCODONE/APAP 5/325 TABLET PO PRN (23:52)
[2022-04-12 10:07] LABS: Basophils % 0.4 %; Eosinophils # 0.1 K/mcL (0.0-0.6); Eosinophils % 0.8 %; Hematocrit 42.1 % (35.3-44.9); Hemoglobin 13.5 g/dL (11.5-15.4); Immature Granulocytes % 0.3 % (0-4); Lymphocytes # 1.8 K/mcL (0.6-4.6); Lymphocytes % 16.7 %; Mean Corpuscular HGB Conc 32.1 g/dL (31.6-35.5); Mean Corpuscular Hemoglobin 28.8 pg (28.0-33.3); Mean Platelet Volume 8.9 fL (9.4-12.4); Monocytes # 1.3 K/mcL (0.0-1.3); Monocytes % 11.9 %; Neutrophils # 7.4 K/mcL (1.6-8.9); Platelet Count 254 K/mcL (140-400); Red Blood Count 4.68 M/mcL (3.82-4.97); Red Cell Distribution Width 14.5 % (11.5-14.5); Segmented Neutrophils % 69.9 %; White Blood Count 10.6 K/mcL (4.3-11.1)
[2022-04-12 10:28] LABS: Calcium 8.8 mg/dL (8.6-10.3); Potassium 3.9 mEq/L (3.5-5.1)
[2022-04-12] MEDS ORDERED: CeFAZolin Syr 2,000MG/20 ML 2,000 MG/20 ML SYRINGE IVPB ONE (14:25)
[2022-04-12] MEDS ORDERED: Albuterol 2.5 MG/3 ML NEBULIZER IH PRN (15:12)
[2022-04-12] MEDS: Ringers Solution, Lactated 1,000 ML IVC SCH (15:13)
[2022-04-12] MEDS ORDERED: *HR* HYDROmorphone PF 0.5 MG/0.5 ML SYRINGE IVP PRN (15:16)
[2022-04-12] MEDS ORDERED: *HR* FentaNYL (PF) 100 MCG/2 ML VIAL ONE (15:21)
[2022-04-12] MEDS ORDERED: Lidocaine -MPF 2% 5 ML VIAL ONE (15:21)
[2022-04-12] MEDS ORDERED: *HR* Propofol 200 MG/20 ML VIAL IVP ONE (15:21)
[2022-04-12] MEDS ORDERED: Ondansetron 4 MG/2 ML VIAL ONE (15:21)
[2022-04-12] MEDS ORDERED: *HR* HYDROMORPHONE 2 MG/ML VIAL ONE (16:41)
[2022-04-12] MEDS ORDERED: Acetaminophen IV 1,000 MG/100 ML BAG IVPB ONE (17:09)
[2022-04-12] MEDS ORDERED: *HR* Promethazine 25 MG/ML VIAL IVPB ONE (17:28)
[2022-04-12] MEDS ORDERED: *HR* Phenylephrine 10 MG/ML VIAL ONE (17:54)
[2022-04-12] MEDS: Budesonide/Formoterol 80/4.5 1 PUFF INH IH SCH (21:05)
[2022-04-13] MEDS: CeFAZolin 2,000 MG/120 ML BAG IVPB SCH ×3 (00:34→17:53)
[2022-04-13 04:42] LABS: Hematocrit 40.8 % (35.3-44.9); Hemoglobin 13.2 g/dL (11.5-15.4); Immature Granulocytes % 0.3 % (0-4); Lymphocytes # 0.8 K/mcL (0.6-4.6); Lymphocytes % 8.6 %; Mean Corpuscular HGB Conc 32.4 g/dL (31.6-35.5); Mean Corpuscular Volume 89.7 fL (83.0-100.0); Mean Platelet Volume 8.9 fL (9.4-12.4); Monocytes # 0.2 K/mcL (0.0-1.3); Monocytes % 2.5 %; Neutrophils # 8.4 K/mcL (1.6-8.9); Platelet Count 251 K/mcL (140-400); Red Blood Count 4.55 M/mcL (3.82-4.97); Red Cell Distribution Width 14.3 % (11.5-14.5); Segmented Neutrophils % 88.6 %; White Blood Count 9.5 K/mcL (4.3-11.1)
[2022-04-13 05:02] LABS: Calcium 8.9 mg/dL (8.6-10.3)
[2022-04-13] MEDS: Cyanocobalamin (B-12) 1,000 MCG TABLET PO SCH (07:51)
[2022-04-13] MEDS: lisinopriL 20 MG TABLET PO SCH (07:51)
[2022-04-13] MEDS: Budesonide/Formoterol 80/4.5 1 PUFF INH IH SCH ×2 (10:28→22:33)
[2022-04-13] MEDS: *HR* Heparin 5,000 UNIT/ML VIAL SQ SCH ×2 (15:28→21:08)
[2022-04-13] MEDS: *HR* OxyCODONE/APAP 5/325 TABLET PO PRN (21:08)
[2022-04-14] MEDS: Ringers Solution, Lactated 1,000 ML IVC SCH ×2 (00:50→21:01)
[2022-04-14] MEDS: *HR* Heparin 5,000 UNIT/ML VIAL SQ SCH ×3 (05:55→20:50)
[2022-04-14] MEDS: *HR* OxyCODONE/APAP 5/325 TABLET PO PRN ×3 (05:55→20:50)
[2022-04-14] MEDS: Budesonide/Formoterol 80/4.5 1 PUFF INH IH SCH ×2 (07:55→21:20)
[2022-04-14] MEDS: Cyanocobalamin (B-12) 1,000 MCG TABLET PO SCH (08:02)
[2022-04-14] MEDS: lisinopriL 20 MG TABLET PO SCH (08:02)
[2022-04-15] MEDS: *HR* Heparin 5,000 UNIT/ML VIAL SQ SCH (05:40)
[2022-04-15 07:24] VITALS: BP 139/84; PULSE 71; TEMP 97.5
[2022-04-15] MEDS: lisinopriL 20 MG TABLET PO SCH (08:36)
[2022-04-15] MEDS: Cyanocobalamin (B-12) 1,000 MCG TABLET PO SCH (08:36)
[2022-04-15] MEDS: Budesonide/Formoterol 80/4.5 1 PUFF INH IH SCH (09:43)
[2022-04-15 09:52] VITALS: O2SAT 96
[2022-04-15] MEDS ORDERED: Budesonide/Formoterol 80/4.5 1 PUFF INH IH SCH (10:00)
== END 2022-04-15 13:25 | disposition home or self-care (01) ==
LOC: EMEROOARM 16:41 → 4WAOSI 16:41 → SUATTDRO 18:35 → 4WAOSI 19:10
PROVIDERS: ADMIT Internal Medicine; ATTEND General Practice